=== PATIENT | male | born 2000 | race Two or more races ===

== ENCOUNTER → 2021-04-18 | Emergency (ER) | payer OTHER ==
[~2021-04-18] VITALS: Ht 167.6 cm; Wt 51.3 kg
== END | disposition home or self-care (01) ==
LOC: EMR PED 11:20
DX: N39.0 Urinary tract infection, site not specified (principal); N48.89 Other specified disorders of penis; Z20.822 Contact with and (suspected) exposure to COVID-19

== ENCOUNTER 2021-07-16 20:46 | Emergency (ER) | payer OTHER ==
[~2021-07-16] VITALS: Ht 167.6 cm; Wt 50.8 kg
== END 2021-07-16 22:57 | disposition home or self-care (01) ==
LOC: ER 20:46
DX: S31.114A Laceration without foreign body of abdominal wall, left lower quadrant without penetration into peritoneal cavity, initial encounter (principal); W25.XXXA Contact with sharp glass, initial encounter; W22.8XXA Striking against or struck by other objects, initial encounter; Y93.55 Activity, bike riding; Y92.89 Other specified places as the place of occurrence of the external cause; Y99.8 Other external cause status